=== PATIENT | male | born 1975 | race Caucasian/White ===

== ENCOUNTER 2016-06-22 13:50 | Outpatient (RCR) | payer OTHER ==
[~2016-06-22 13:50] MED LIST: ADVAIR 250/28 DISKUS IH; CEPHALEXIN500 M1 PO; LORTAB 5/500 501 TAB PO; VENTOLIN0.09 MG IH
== END 2016-07-13 12:37 ==
LOC: WSOH 13:50
DX: S05.90XD Unspecified injury of unspecified eye and orbit, subsequent encounter (principal)